=== PATIENT | female | born 1995 | race American Indian/Alaskan Native ===

== ENCOUNTER 2017-12-23 15:26 | Emergency (ER) | payer MEDICAID ==
[2017-12-23 15:56] VITALS: BP 126/66
[2017-12-23 16:27] LABS: Hematocrit 34.7 % (30.3-42.9); Hemoglobin 11.7 gm/dl (10.1-14.3); Mean Corpuscular HGB Conc 34 % (30-34); Mean Corpuscular Hemoglobin 31 pg (28-32); Mean Corpuscular Volume 92 fl (79-97); Platelet Count 359 K/mm3 (140-440); Red Blood Count 3.77 M/mm3 (3.65-5.03); Red Cell Distribution Width 12.9 % (13.2-15.2)
[2017-12-23 17:01] LABS: Basophils % (Manual) 0 % (0.0-1.8); Eosinophils % (Manual) 0 % (0.0-4.3); Total Cells Counted 100
[2017-12-23 17:02] LABS: Anisocytosis 1+
[2017-12-23 17:30] LABS: Bacteria,Urine 1+ /HPF (Negative); Bilirubin,Urine NEG (Negative); Blood,Urine NEG (Negative); Color,Urine Yellow (Yellow); Mucus,Urine 3+ /HPF
== END 2017-12-23 21:50 | disposition left against medical advice (07) ==
LOC: ED 15:26
DX: Z53.21 Procedure and treatment not carried out due to patient leaving prior to being seen by health care provider (principal)
CPT/HCPCS: 36415; 81001; 84702; 85007; 85025; 86850; 86900; 86901

== ENCOUNTER 2017-12-25 10:09 | Emergency (ER) | payer MEDICAID ==
[2017-12-25 10:15] VITALS: BP 122/56
--- NOTE | 2017-12-25 11:07 | Emergency Department Report ---
ED Female HPI - General Chief complaint: Vaginal Bleeding Stated complaint: 9 WEEKS PREG/PAIN/BLEEDING Time Seen by Provider: 12/25/17 11:04 Source: patient, EMS Mode of arrival: Ambulatory Limitations: No Limitations - History of Present Illness Initial comments: 22-year-old -[place] female comes in for vaginal bleeding onset Tuesday. Patient was seen here yesterday but did not be evaluated by a provider. Patient reports that she is having pelvic cramping. She denies any shortness of breathing and chest pain no fever no chills she admits to nausea and vomiting. She reports she vomited once today and once yesterday. For this she is able to hold down fluids. Patient is 7 para 1 5. She is currently taking vitamins and B6. Past medical history of seizures last couple years ago she does have a referral been placed by her [facility]. She is followed by [facility]. Patient has no known drug allergies allergic to bananas. LMP 10/17/2017. She reports that she had an ultrasound done at her visit. MD Complaint: vaginal bleeding, pelvic pain -: days(s) (3) Location: perineum, suprapubic Severity scale (0 -10): 8 Quality: cramping Consistency: constant Improves with: none Worsens with: none Are you Now?: Yes Last Menstrual Period: 10/17/17 EDC: 07/24/18 Associated Symptoms: vaginal bleeding, nausea/vomiting. denies: vaginal discharge, fever/chills, headaches, loss of appetite, dysuria, shortness of breath, weakness - Related Data Sexually active: Yes : 7 Para: 1 A: 5 Previous Rx's Medication Instructions Recorded Last Taken Type Nitrofurantoin Monohyd/M-Cryst 100 mg PO BID 7 Days #14 capsule 12/25/17 Unknown Rx [Macrobid 100 mg Capsule] Allergies Allergy/AdvReac Type Severity Reaction Status Date / Time No Known Allergies Allergy Verified 12/25/17 10:12 ED Review of Systems ROS: Stated complaint: 9 WEEKS PREG/PAIN/BLEEDING Other details as noted in HPI Constitutional: denies: chills, fever Eyes: denies: eye pain, eye discharge, vision change ENT: denies: ear pain, throat pain Respiratory: denies: cough, shortness of breath, wheezing Cardiovascular: denies: chest pain, palpitations Endocrine: no symptoms reported Gastrointestinal: abdominal pain, nausea, vomiting Genitourinary: denies: dysuria Musculoskeletal: denies: back pain, joint swelling, arthralgia Skin: denies: rash, lesions Neurological: denies: headache, weakness, paresthesias Psychiatric: denies: anxiety, depression Hematological/Lymphatic: denies: easy bleeding, easy bruising ED Past Medical Hx - Past Medical History Additional medical history: x 5 - Surgical History Additional Surgical History: Abortions x 5 - Social History Smoking Status: Current Every Day Smoker Substance Use Type: None - Medications Home Medications: Home Medications Medication Instructions Recorded Confirmed Last Taken Type Nitrofurantoin Monohyd/M-Cryst 100 mg PO BID 7 Days #14 capsule 12/25/17 Unknown Rx [Macrobid 100 mg Capsule] ED Physical Exam - General Limitations: No Limitations General appearance: alert, in no apparent distress - Head Head exam: Present: atraumatic, normocephalic - Eye Eye exam: Present: normal appearance - ENT ENT exam: Present: mucous membranes moist - Neck Neck exam: Present: normal inspection - Respiratory Respiratory exam: Present: normal lung sounds bilaterally. Absent: respiratory distress - Cardiovascular Cardiovascular Exam: Present: regular rate, normal rhythm. Absent: systolic murmur, diastolic murmur, rubs, gallop - GI/Abdominal GI/Abdominal exam: Present: soft, normal bowel sounds - External exam: Present: normal external exam Speculum exam: Present: vaginal discharge. Absent: vaginal bleeding Bi-manual exam: Present: normal bi-manual exam - Extremities Exam Extremities exam: Present: normal inspection - Back Exam Back exam: Present: normal inspection - Neurological Exam Neurological exam: Present: alert, oriented X3 - Psychiatric Psychiatric exam: Present: normal affect, normal mood - Skin Skin exam: Present: warm, dry, intact, normal color. Absent: rash ED Course Vital Signs 12/25/17 12/25/17 10:12 10:54 Temperature 98.9 F Pulse Rate 93 H Respiratory 16 18 Rate Blood Pressure 122/56 O2 Sat by Pulse 98 Oximetry ED Medical Decision Making - Lab Data Result diagrams: 12/25/17 11:55 - Radiology Data Radiology results: report reviewed Ultrasound pelvic first trimester no acute abnormalities Dr. Peraza live IUP. Estimated date of delivery 07/27/2018 - Medical Decision Making Patient has been evaluated by this provider in fast track. Patient was seen yesterday for vaginal bleeding but did not stay to be evaluated by M.D. Patient comes in stating that she has vaginal bleeding today as well as pelvic cramping. Patient did not take any pain medicine prior to arrival. Patient had labs ordered and ultrasound performed which shows no acute abnormalities. Would discharge patient to follow up with her [employer] [facility] [facility]. She is followed by [facility]. Critical care attestation.: If time is entered above; I have spent that time in minutes in the direct care of this critically ill patient, excluding procedure time. ED Disposition Clinical Impression: UTI (urinary tract infection) Qualifiers: Urinary tract infection type: acute cystitis Hematuria presence: with hematuria Qualified Code(s): N30.01 - Acute cystitis with hematuria Disposition: TO HOME OR SELFCARE Is pt being admited?: No Does the pt Need Aspirin: No Condition: Stable Instructions: Urinary Tract Infection in Women (ED) Additional Instructions: Please complete antibiotics as prescribed. He can take Tylenol for pain. It's important for you to follow up with your primary care provider which is mild OB in the next 3-5 days. Prescriptions: Nitrofurantoin Monohyd/M-Cryst [Macrobid 100 mg Capsule] 100 mg PO BID 7 Days # 14 capsule Referrals: PRIMARY CARE,MD [Primary Care Provider] - 3-5 Days Forms: Work/School Release Form(ED), Accompanied Note
[2017-12-25] MEDS ORDERED: TYLENOL PO ONE (11:16)
[2017-12-25 12:12] LABS: Hematocrit 33.7 % (30.3-42.9); Hemoglobin 11.5 gm/dl (10.1-14.3); Mean Corpuscular HGB Conc 34 % (30-34); Mean Corpuscular Hemoglobin 32 pg (28-32); Mean Corpuscular Volume 92 fl (79-97); Platelet Count 341 K/mm3 (140-440); Red Blood Count 3.66 M/mm3 (3.65-5.03); Red Cell Distribution Width 12.9 % (13.2-15.2)
[2017-12-25 14:28] LABS: Anisocytosis 1+; Basophils % (Manual) 0 % (0.0-1.8); Platelet Estimate Consistent w Auto; Total Cells Counted 100
[2017-12-25 14:43] LABS: Bacteria,Urine 2+ /HPF (Negative); Bilirubin,Urine NEG (Negative); Blood,Urine MOD (Negative); Color,Urine Yellow (Yellow); Mucus,Urine 3+ /HPF; Urobilinogen,Urine < 2.0 mg/dL (<2.0)
--- NOTE | 2017-12-29 13:01 | Ultrasound Report ---
ULTRASOUND OB LESS THAN 14 WEEKS FETUS ULTRASOUND OB TRANSVAGINAL HISTORY: Vaginal bleeding during . COMPARISON: None. TECHNIQUE: Transabdominal and transvaginal ultrasound with color doppler interrogation. FINDINGS: Uterus: Anteverted. The uterus measures 11 x 7 x 7 cm. No uterine mass is identified. Normal cervix. Endometrium: An intrauterine gestational sac containing a pole and yolk sac is identified. Heart rate measures 161 beats per minutes. No subchorionic hemorrhage. [place]-rump length correlates with a 9 week, 3 day . Right ovary: 4.1 x 2.8 x 2.6 cm. There are 2 cysts in the right ovary measuring 1.8 cm and 2.1 cm. Left ovary: 3 1 x 1.4 x 2.1 cm. No focal abnormality. No pelvic fluid or mass is identified. Normal color doppler interrogation. IMPRESSION: Viable, single intrauterine as described. No acute abnormality. Right ovarian cysts.
== END 2017-12-25 15:17 | disposition home or self-care (01) ==
LOC: ED 10:09
DX: O23.41 Unspecified infection of urinary tract in pregnancy, first trimester (principal); Z3A.09 9 weeks gestation of pregnancy; O99.331 Smoking (tobacco) complicating pregnancy, first trimester
CPT/HCPCS: 36415; 76801; 76817; 81001; 84703; 85007; 85025; 87076; 87086; 87186; 87210; 87591; 99284